=== PATIENT | female | born 1990 | race Caucasian/White ===

== ENCOUNTER 2017-06-26 09:09 | Emergency (ER) | payer SELFPAY ==
[~2017-06-26] VITALS: Ht 165.1 cm; Wt 85.9 kg
[2017-06-26 09:12] VITALS: Ht 165.1 cm; Wt 85.9 kg
[2017-06-26] MEDS ORDERED: ONDANSETRON 4 MG INJ IV STA ×2 (09:26→12:59)
[2017-06-26] MEDS ORDERED: SOD CHLORIDE 0.9% 1,000 ML IV STA (09:26)
[2017-06-26] MEDS ORDERED: morphine 4 MG/ML VIAL IV STA (09:26)
[2017-06-26 10:36] LABS: ADD UMIC YES; UR ASCORBIC ACID NEGATIVE (NEGATIVE); UR BACTERIA FEW /HPF (NONE SEEN); UR BILIRUBIN (Dip) NEGATIVE (NEGATIVE); UR BLOOD (Dip) 2+ mg/dL (NEGATIVE); UR CLARITY SLIGHTLY CLOUDY (CLEAR); UR COLOR YELLOW (YELLOW); UR GLUCOSE (Dip) NEGATIVE (NEGATIVE); UR KETONES (Dip) NEGATIVE (NEGATIVE); UR LEUKOCYTE ESTERASE (Dip) 3+ Leu/ul (NEGATIVE); UR NITRITE (Dip) NEGATIVE (NEGATIVE); UR RBC 10 /HPF (0-5); UR SQUAMOUS EPITHELIAL CELL FEW /HPF (FEW); UR TOTAL PROTEIN (Dip) NEGATIVE (NEGATIVE); UR UROBILINOGEN (Dip) NEGATIVE (NEGATIVE)
[2017-06-26 11:18] LABS: BASOPHILS % 0.4 % (0.0-2.0); EOSINOPHILS # 0.4 10^3/ul (0.0-0.5); EOSINOPHILS % 3.5 % (0.0-7.0); HEMATOCRIT 44.7 % (37.0-47.0); HEMOGLOBIN 14.7 g/dl (12.0-16.0); LYMPHOCYTES # 1.7 10^3/ul (0.8-2.9); LYMPHOCYTES % 15.8 % (15.0-51.0); MEAN CORPUSCULAR HEMOGLOBIN 27.3 pg (29.0-33.0); MEAN CORPUSCULAR HGB CONC 32.9 g/dl (32.0-37.0); MEAN CORPUSCULAR VOLUME 82.9 fl (82.0-101.0); MEAN PLATELET VOLUME 11.1 fl (7.4-10.4); MONOCYTE # 0.6 10^3/ul (0.3-0.9); MONOCYTES % 5.8 % (0.0-11.0); NEUTROPHIL # 8.1 10^3/ul (1.6-7.5); NEUTROPHILS % 74.1 % (39.0-77.0); PLATELET COUNT 378 10^3/UL (140-415); RED BLOOD COUNT 5.39 10^6/ul (4.20-5.40); RED CELL DISTRIBUTION WIDTH 13.9 % (11.5-14.5); WHITE BLOOD COUNT 10.9 10^3/ul (4.8-10.8)
[2017-06-26 11:47] LABS: ALBUMIN 4.7 g/dl (3.3-4.9); ALBUMIN/GLOBULIN RATIO 1.2; BILIRUBIN,INDIRECT 0.4 mg/dl (0-1.1); BILIRUBIN,TOTAL 0.4 mg/dl (0.2-1.3); CALCIUM 9.6 mg/dl (8.4-10.2); CREATININE 0.65 mg/dl (0.44-1.00); POTASSIUM 4.1 mmol/L (3.5-5.1); TOTAL PROTEIN 8.6 g/dl (6.1-8.1)
[2017-06-26] MEDS ORDERED: morphine 2 MG INJ IV STA (12:04)
[2017-06-26] MEDS ORDERED: ONDANSETRON (ODT) 4 MG TAB ODT STA (12:05)
--- NOTE | 2017-06-26 12:49 | RADRPT ---
PROCEDURE: CT ABDOMEN AND PELVIS WITHOUT CONTRAST. CLINICAL INDICATION: Abdominal pain with nausea and vomiting TECHNIQUE: CT scan of the abdomen and pelvis without contrast was performed on a multidetector hig h-resolution CT scanner. The patient was scanned without intravenous contrast. Coronal and sagittal reformatted images were obtained from the axial source images. Images were reviewed on a high-resol [employer] PACS workstation. The total exam CTDI equals 19.8 mGy and the total exam DLP equals 1117.5 mGy -cm. One or more of the following dose reduction techniques were used: Automated exposure control. Adjustment of the mA and/or kV according to patient size. Use of iterative reconstruction technique. DICOM images are available COMPARISON: None FINDINGS: CT abdomen: The lung bases are clear. The heart size is within limits. There is no significant pericardial effus ion. Hepatic morphology is within normal limits. No gross contour deforming masses. Status post cholecyst ectomy. No evidence of intrahepatic or extrahepatic biliary dilatation. The spleen and pancreas are within normal limits. Both adrenal glands are within normal limits. Both kidneys are and normal anatomic position. No gross renal/ureteric calculi. No evidence of obstr uction or hydronephrosis. The visualized GI tract demonstrate normal caliber loops of small and large bowel. No evidence of jewels wel obstruction. The appendix is not visualized, however no inflammatory changes within the right lo wer quadrant. The unenhanced aorta is unremarkable. There is no significant retroperitoneal lymphadenopathy. CT pelvis: The bladder is within normal limits. Intrauterine device is noted within the uterus. The rectosigmoi d colon is within normal limits. Small amount of free fluid noted within the pelvis. No significant pelvic lymphadenopathy. The visualized osseous structures appear to be within normal limits. IMPRESSION: 1. No evidence of bowel obstruction. Fluid-filled loops of small and large bowel suggestive of gastr oenteritis. The appendix is not clearly identified, however no inflammatory changes within the right lower quadrant. 2. Trace amount of free fluid in the pelvis, likely physiologic within normal limits. No free air or focal fluid collections. 3. Status post cholecystectomy. 4. Intrauterine device in place. RPTAT: AAPP Jimmy Teresa Physician Date Time Electronically viewed and signed by Jimmy Teresa Physician on 06/26/2017 12:48 [facility]/
[2017-06-26] MEDS ORDERED: HYDROmorphONE 1 MG/ML SYG IV STA (12:59)
[2017-06-26] MEDS ORDERED: KETOROLAC 30 MG INJ IV STA (12:59)
[2017-06-26] MEDS ORDERED: HYDR-906 PO (14:04)
[2017-06-26] MEDS ORDERED: CIPR500T4 PO (14:04)
--- NOTE | 2017-06-26 14:12 | ERD ---
ER Documentation Chief Complaint Chief Complaint Complains of abdominal pain x since this am HPI 27-year-old female complaining of severe abdominal pain 1 day. Has had episodes of vomiting. Has never experienced pain like this before. Denies changes in urination or bowel movement. Has not taken medications for symptoms. Denies fever but has chills. Rates the pain a 10 out of 10. Describes the pain is throughout the abdomen and is not localized to one location. Denies medical problems. NKDA. Surgical history: Cholecystectomy and tummy tuck. LNMP 2 weeks ago. Social history: Denies ROS All systems reviewed and are negative except as per history of present illness. Medications Home Meds Active Scripts Hydrocodone/Acetaminophen (Kasbeer 5-325 Tablet) 1 Each Tablet, 1 TAB PO Q6H Y for PAIN, #7 TAB Prov:DEMETRICE VIRGEN PA-C 06/26/17 Ciprofloxacin Hcl* (Ciprofloxacin Hcl*) 500 Mg Tablet, 500 MG PO BID for 7 Days , TAB Prov:DEMETRICE VIRGEN PA-C 06/26/17 Allergies Allergies: Coded Allergies: No Known Allergy (Unverified , 06/26/17) PMhx/Soc Medical and Surgical Hx: pt denies Medical Hx, pt denies Surgical Hx History of Surgery: No Anesthesia Reaction: No Hx Neurological Disorder: No Hx Respiratory Disorders: No Hx Cardiac Disorders: No Hx Psychiatric Problems: No Hx Miscellaneous Medical Probl: No Hx Alcohol Use: No Hx Substance Use: No Hx Tobacco Use: No Smoking Status: Never smoker Physical Exam Vitals Vital Signs Date Time Temp Pulse Resp B/P Pulse Ox O2 Delivery O2 Flow Rate FiO2 06/26/17 09:12 99.3 94 20 147/88 95 Physical Exam GENERAL: The patient is well-appearing, well-nourished, in no acute distress HEENT: Atraumatic. Conjunctivae are pink. Pupils equal, round, and reactive to light. There is no scleral icterus. Tympanic membranes clear bilaterally. Oropharynx clear. No nystagmus or photophobia. NECK: C-spine is soft and supple. There is no meningismus. There is no cervical lymphadenopathy. CHEST: Clear to auscultation bilaterally. There are no rales, wheezes or rhonchi. HEART: Regular rate and rhythm. No murmurs, clicks, rubs or gallops. No S3 or S4. ABDOMEN: Normoactive bowel sounds. Tender to palpation throughout the whole abdomen. No rigidity. No distention. No organomegaly. BACK: No midline or flank tenderness. Result Diagram: 06/26/17 1048 06/26/17 1048 Results 24 hrs Laboratory Tests Test 06/26/17 09:46 06/26/17 10:48 Urine Color YELLOW Urine Clarity SLIGHTLY CLOUDY Urine pH 5.0 Urine Specific Matthews 1.020 Urine Ketones NEGATIVEmg/dL Urine Nitrite NEGATIVEmg/dL Urine Bilirubin NEGATIVEmg/dL Urine Urobilinogen NEGATIVEmg/dL Urine Leukocyte Esterase 3+Jimbo/ul Urine Microscopic RBC 10/HPF Urine Microscopic WBC 39/HPF Urine Squamous Epithelial Cells FEW/HPF Urine Bacteria FEW/HPF Urine Hemoglobin 2+mg/dL Urine Glucose NEGATIVEmg/dL Urine Total Protein NEGATIVEmg/dl White Blood Count 10.910^3/ul Red Blood Count 5.3910^6/ul Hemoglobin 14.7g/dl Hematocrit 44.7% Mean Corpuscular Volume 82.9fl Mean Corpuscular Hemoglobin 27.3pg Mean Corpuscular Hemoglobin Concent 32.9g/dl Red Cell Distribution Width 13.9% Platelet Count 90113^3/UL Mean Platelet Volume 11.1fl Neutrophils % 74.1% Lymphocytes % 15.8% Monocytes % 5.8% Eosinophils % 3.5% Basophils % 0.4% Nucleated Red Blood Cells % 0.0/100WBC Neutrophils # 8.110^3/ul Lymphocytes # 1.710^3/ul Monocytes # 0.610^3/ul Eosinophils # 0.410^3/ul Basophils # 0.010^3/ul Nucleated Red Blood Cells # 0.010^3/ul Sodium Level 139mmol/L Potassium Level 4.1mmol/L Chloride Level 107mmol/L Carbon Dioxide Level 17mmol/L Anion Gap 19 Blood Urea Nitrogen 16mg/dl Creatinine 0.65mg/dl Glucose Level 87mg/dl Calcium Level 9.6mg/dl Total Bilirubin 0.4mg/dl Direct Bilirubin 0.00mg/dl Indirect Bilirubin 0.4mg/dl Aspartate Amino Transf (AST/SGOT) 25IU/L Alanine Aminotransferase (ALT/SGPT) 32IU/L Alkaline Phosphatase 77IU/L Total Protein 8.6g/dl Albumin 4.7g/dl Globulin 3.90g/dl Albumin/Globulin Ratio 1.20 Lipase 78U/L Serum HCG, Qualitative NEGATIVE Current Medications Medications (Trade) Dose Ordered Sig/Julien Route PRN Reason Start Time Stop Time Status Last Admin Dose Admin Sodium Chloride (NS) 1,000 ml @ 1,000 mls/hr Q1H STAT IV 06/26/17 09:26 06/26/17 10:25 DC 06/26/17 11:03 Morphine Sulfate (morphine) 4 mg ONCE STAT IV 06/26/17 09:26 06/26/17 09:27 DC 06/26/17 10:59 Ondansetron HCl (Zofran Inj) 4 mg ONCE STAT IV 06/26/17 09:26 06/26/17 09:27 DC 06/26/17 10:59 Morphine Sulfate (morphine) 2 mg ONCE STAT IV 06/26/17 12:04 06/26/17 12:06 DC 06/26/17 12:09 Ondansetron HCl (Zofran Odt) 4 mg ONCE STAT ODT 06/26/17 12:05 06/26/17 12:06 DC 06/26/17 12:09 Hydromorphone HCl (Dilaudid) 1 mg ONCE STAT IV 06/26/17 12:59 06/26/17 13:01 DC 06/26/17 13:37 Ketorolac Tromethamine (Toradol) 30 mg ONCE STAT IV 06/26/17 12:59 06/26/17 13:01 DC 06/26/17 13:37 Ondansetron HCl (Zofran Inj) 4 mg ONCE STAT IV 06/26/17 12:59 06/26/17 13:01 DC 06/26/17 13:38 Procedures/MDM DIAGNOSTIC IMAGING REPORT Patient: STEPHANIE MALDONADO : 1990 Age: 27 Sex: F MR #: [id number] DOS: 06/26/17925 Ordering MD: DESI VIRGEN PA-C Location: [facility] Room/Bed: PROCEDURE: CT ABDOMEN AND PELVIS WITHOUT CONTRAST. CLINICAL INDICATION: Abdominal pain with nausea and vomiting TECHNIQUE: CT scan of the abdomen and pelvis without contrast was performed on a multidetector high-resolution CT scanner. The patient was scanned without intravenous contrast. Coronal and sagittal reformatted images were obtained from the axial source images. Images were reviewed on a high-resolution PACS workstation. The total exam CTDI equals 19.8 mGy and the total exam DLP equals 1117.5 mGy-cm. One or more of the following dose reduction techniques were used: Automated exposure control. Adjustment of the mA and/or kV according to patient size. Use of iterative reconstruction technique. DICOM images are available COMPARISON: None FINDINGS: CT abdomen: The lung bases are clear. The heart size is within limits. There is no significant pericardial effusion. Hepatic morphology is within normal limits. No gross contour deforming masses. Status post cholecystectomy. No evidence of intrahepatic or extrahepatic biliary dilatation. The spleen and pancreas are within normal limits. Both adrenal glands are within normal limits. Both kidneys are and normal anatomic position. No gross renal/ureteric calculi. No evidence of obstruction or hydronephrosis. The visualized GI tract demonstrate normal caliber loops of small and large bowel. No evidence of bowel obstruction. The appendix is not visualized, however no inflammatory changes within the right lower quadrant. The unenhanced aorta is unremarkable. There is no significant retroperitoneal lymphadenopathy. CT pelvis: The bladder is within normal limits. Intrauterine device is noted within the uterus. The rectosigmoid colon is within normal limits. Small amount of free fluid noted within the pelvis. No significant pelvic lymphadenopathy. The visualized osseous structures appear to be within normal limits. IMPRESSION: 1. No evidence of bowel obstruction. Fluid-filled loops of small and large bowel suggestive of gastroenteritis. The appendix is not clearly identified, however no inflammatory changes within the right lower quadrant. 2. Trace amount of free fluid in the pelvis, likely physiologic within normal limits. No free air or focal fluid collections. 3. Status post cholecystectomy. 4. Intrauterine device in place. ER Course: 1 L normal saline given in ED. 6 mg IV morphine, 1 mg IV Dilaudid and 30 mg IV Toradol given in ED. Upon reevaluation patient's symptoms have dramatically improved and patient no longer had abdominal pain. This case was reviewed and discussed with Dr. Eubanks prior to discharge. MDM: 27-year-old female complaining of abdominal pain. Patient CT scan is within normal limits. Patient does have signs of urinary tract infection on urinalysis. I have low suspicion for pyelonephritis a patient does not have CVA tenderness on exam. I have low suspicion for pelvic emergency. Exam is non -concerning. Her blood work is within normal limits and pain is resolved while in the ED. Case was discussed with Dr. Eubanks given patient did have severe abdominal pain. Patient is told if symptoms change or worsen to return to the ER immediately. Patient is discharged with strict ER precautions Departure Diagnosis: Primary Impression: UTI (urinary tract infection) Additional Impression: Abdominal pain Condition: Stable Patient Instructions: Abdominal Pain, Understanding Urinary Tract Infections ( UTIs) Referrals: COMMUNITY CLINICS YOU HAVE RECEIVED A MEDICAL SCREENING EXAM AND THE RESULTS INDICATE THAT YOU DO NOT HAVE A CONDITION THAT REQUIRES URGENT TREATMENT IN THE EMERGENCY DEPARTMENT. FURTHER EVALUATION AND TREATMENT OF YOUR CONDITION CAN WAIT UNTIL YOU ARE SEEN IN YOUR DOCTORS OFFICE WITHIN THE NEXT 1-2 DAYS. IT IS YOUR RESPONSIBILITY TO MAKE AN APPOINTMENT FOR FOLOW-UP CARE. IF YOU HAVE A PRIMARY DOCTOR --you should call your primary doctor and schedule an appointment IF YOU DO NOT HAVE A PRIMARY DOCTOR YOU CAN CALL OUR PHYSICIAN REFERRAL HOTLINE AT IF YOU CAN NOT AFFORD TO SEE A PHYSICIAN YOU CAN CHOSE FROM THE FOLLOWING [facility] [address] [facility] [address] [facility] [facility] [address] [facility] [address] [facility] [address] [facility]. [address] Additional Instructions: FOLLOW UP WITH YOUR PRIMARY CARE PHYSICIAN TOMORROW.Return to this facility if you are not improving as expected. DEMETRICE VIRGEN PA-C Jun 26, 2017 14:12
[2017-06-26 15:23] VITALS: BP 107/57; PULSE 70; RESP 16; TEMP 99
--- NOTE | 2017-06-26 16:19 | EN ---
Date/Time of Note Date/Time of Note DATE: 06/26/17 TIME: 16:16 ER Progress Note This 27-year-old female discharged by Yanci KITCHEN, was seen for abdominal pain , nausea vomiting that started today treated for nausea, diagnostic testing shows a urinary tract infection, patient was discharged with Cipro, she had a full evaluation including labs and CAT scan of abdomen and pelvis without contrast with no acute abnormality, cholecystectomy seen, trace free fluid noted. It was a approached by RN stating that patient reports vomiting in the bathroom prior to discharge is requesting medication, and does not feel safe to leave. I have reviewed case, and interactions, plan to give Compazine 5 mg IM, I have no clinical reason to keep patient any longer, patient will be discharged as planned with diagnosis of gastroenteritis likely viral, and a urinary tract infection, increase fluids, increase rest. MANDO CAMPA Jun 26, 2017 16:19
[2017-06-26] MEDS ORDERED: PROCHLORPERAZINE 10 MG INJ IM ONE (16:30)
== END 2017-06-26 16:28 | disposition home or self-care (01) ==
LOC: FTE 09:09
DX: N39.0 Urinary tract infection, site not specified (principal); R11.10 Vomiting, unspecified
CPT/HCPCS: 36415; 74176; 80053; 81001; 83690; 84703; 85025; 96374; 96375; 96376; 99285; J0780; J1170; J1885; J2270; J2405; J7030